=== PATIENT | female | born 1965 | race Caucasian/White ===

== ENCOUNTER → 2018-07-19 | Outpatient (CLI) | payer BC ==
[~2018-07-19] MED LIST: CHOL200024 PO; FISH1CAP PO; LEVO75TA5 PO; LINA5TAB PO; LOSA25TA25 PO; MULT-717 PO; VITA400C43 PO
== END | disposition home or self-care (01) ==
LOC: STAR 12:44
PROVIDERS: ATTEND Orthopaedic Surgery
DX: Z01.818 Encounter for other preprocedural examination (principal); M76.72 Peroneal tendinitis, left leg; M12.872 Other specific arthropathies, not elsewhere classified, left ankle and foot; M25.572 Pain in left ankle and joints of left foot
CPT/HCPCS: 93005

== ENCOUNTER 2018-07-26 11:26 | Day surgery (SDC) | payer BC ==
[~2018-07-26] VITALS: Ht 167.6 cm; Wt 115.5 kg
[2018-07-26] MEDS ORDERED: FENTANYL PF 100 MCG/2ML ONE ×2 (11:48→14:35)
[2018-07-26] MEDS ORDERED: MIDAZOLAM 1 MG/ML, 2ML ONE (11:48)
[2018-07-26] MEDS ORDERED: LACTATED RINGERS 1,000 ML IV SCH (12:20)
[2018-07-26 12:24] VITALS: BP 131/90
[2018-07-26] MEDS ORDERED: GABAPENTIN 300 MG CAPSULE PO ONE (12:30)
[2018-07-26] MEDS ORDERED: ONDANSETRON ODT 8 MG PO ONE (12:30)
[2018-07-26] MEDS ORDERED: ACETAMINOPHEN 500 MG TABLET PO ONE (12:30)
[2018-07-26] MEDS ORDERED: MIDAZOLAM 1 MG/ML, 2ML IV PRN (14:00)
[2018-07-26] MEDS ORDERED: MEPERIDINE/PF 25MG/0.5ML IVPush PRN (14:00)
[2018-07-26] MEDS ORDERED: FENTANYL PF 100 MCG/2ML IV PRN (14:00)
[2018-07-26] MEDS ORDERED: hydrALAzine 20 MG/ML, 1ML IV PRN (14:00)
[2018-07-26] MEDS ORDERED: METOPROLOL 1 MG/ML, 5ML IV PRN (14:00)
[2018-07-26] MEDS ORDERED: ALBUTEROL/IPRATROPIUM 2.5MG/0.5MG, 3 ML NPPB PRN (14:00)
[2018-07-26] MEDS ORDERED: ONDANSETRON 2MG/ML, 2ML IV PRN (14:00)
[2018-07-26] MEDS ORDERED: OXYcodone 5 MG/5 ML ORAL.SOL UDC PO PRN (14:00)
[2018-07-26] MEDS ORDERED: HYDROmorphone 2 MG/ML, 1ML IVPush PRN (14:00)
[2018-07-26] MEDS ORDERED: PROMETHAZINE 25 MG/ML, 1ML IV PRN (14:00)
[2018-07-26] MEDS ORDERED: KETOROLAC 30 MG/1 ML ONE (14:54)
[2018-07-26] MEDS ORDERED: LIDOCAINE-MPF 2% ,5ML ONE (14:54)
[2018-07-26] MEDS ORDERED: CEFAZOLIN 1,000 MG ONE (14:55)
[2018-07-26] MEDS ORDERED: BUPIVACAINE/PF 0.5% ONE (14:55)
[2018-07-26] MEDS ORDERED: DEXAMETHASONE 4 MG/ML, 1ML ONE (14:55)
[2018-07-26] MEDS ORDERED: PROPOFOL 10 MG/ML, 20ML ONE (14:55)
== END 2018-07-26 18:15 | disposition home or self-care (01) ==
LOC: OUT 11:26
PROVIDERS: ATTEND Orthopaedic Surgery
DX: S86.321A Laceration of muscle(s) and tendon(s) of peroneal muscle group at lower leg level, right leg, initial encounter (principal); M21.6X2 Other acquired deformities of left foot; M25.372 Other instability, left ankle; I10 Essential (primary) hypertension; E03.9 Hypothyroidism, unspecified; E11.9 Type 2 diabetes mellitus without complications; E66.01 Morbid (severe) obesity due to excess calories; Z68.41 Body mass index [BMI] 40.0-44.9, adult; Z88.6 Allergy status to analgesic agent; Z88.8 Allergy status to other drugs, medicaments and biological substances; X58.XXXA Exposure to other specified factors, initial encounter; Y93.89 Activity, other specified; Y92.89 Other specified places as the place of occurrence of the external cause; Y99.8 Other external cause status
CPT/HCPCS: 27687; 27698; 28300; 28306; 73620; 76000; 82962; C1713; J0690; J1100; J1885; J2250; J2704; J3010; J3490; J7120; Q0162; 76001

== ENCOUNTER 2020-12-02 11:28 | Day surgery (SDC) | payer BC, OTHER ==
[2020-11-29 11:36] LABS: ALANINE AMINOTRANSFERASE 39 U/L (12-78); ALBUMIN 3.6 g/dL (3.4-5.0); ANION GAP 4 mmol/L (5-15); CALCIUM 9.6 mg/dL (8.5-10.1); CHLORIDE 108 mmol/L (98-107); CREATININE 0.91 mg/dL (0.55-1.02)
[2020-11-29 11:39] LABS: ALKALINE PHOSPHATASE 56 U/L (45-117); BILIRUBIN,TOTAL 0.4 mg/dL (0.2-1.0); TOTAL PROTEIN 8.2 g/dL (6.4-8.2)
[~2020-12-02] VITALS: Ht 167.6 cm; Wt 118.8 kg
[~2020-12-02 11:28] MED LIST changes: +ATOR10TA9 PO; +LEVO88TA4 PO
[2020-12-02] MEDS ORDERED: CHLORHEXIDINE 15 ML UDC PO ONE (12:00)
[2020-12-02] MEDS ORDERED: LACTATED RINGERS 1,000 ML IV SCH (12:00)
[2020-12-02] MEDS ORDERED: LIDOCAINE-MPF 1%, 2ML INFIL ONE (12:00)
[2020-12-02 12:19] VITALS: BP 151/90
[2020-12-02] MEDS ORDERED: PROPOFOL 10 MG/ML, 20ML ONE (13:09)
[2020-12-02] MEDS ORDERED: PROPOFOL 50 ML ONE (13:09)
[2020-12-02] MEDS ORDERED: FENTANYL PF 100 MCG/2ML IV PRN (15:00)
[2020-12-02] MEDS ORDERED: DIPHENHYDRAMINE 50 MG/ML, 1ML IVPush PRN (15:00)
[2020-12-02] MEDS ORDERED: DIAZEPAM 5 MG/ML, 2ML IVPush PRN (15:00)
[2020-12-02] MEDS ORDERED: EPHEDRINE 50 MG/ML, 1ML IM PRN (15:00)
[2020-12-02] MEDS ORDERED: MEPERIDINE/PF 25MG/0.5ML IVPush PRN (15:00)
[2020-12-02] MEDS ORDERED: PROMETHAZINE 25 MG/ML, 1ML IVPush PRN (15:00)
[2020-12-02] MEDS ORDERED: ONDANSETRON 2MG/ML, 2ML IVPush PRN (15:00)
[2020-12-02] MEDS ORDERED: OXYcodone 5 MG/5 ML ORAL.SOL UDC PO PRN (15:00)
[2020-12-02] MEDS ORDERED: EPHEDRINE 50 MG/ML, 1ML IVPush PRN (15:00)
[2020-12-02] MEDS ORDERED: LABETALOL 5MG/ML, 20ML IV PRN (15:00)
== END 2020-12-02 16:10 | disposition home or self-care (01) ==
LOC: OUT 11:28
PROVIDERS: ATTEND Internal Medicine Gastroenterology
DX: K22.2 Esophageal obstruction (principal); K29.50 Unspecified chronic gastritis without bleeding; K31.7 Polyp of stomach and duodenum; R13.10 Dysphagia, unspecified; R63.3 Feeding difficulties; E66.01 Morbid (severe) obesity due to excess calories; Z68.41 Body mass index [BMI] 40.0-44.9, adult; Z20.822 Contact with and (suspected) exposure to COVID-19; Z79.890 Hormone replacement therapy; Z79.899 Other long term (current) drug therapy; Z88.5 Allergy status to narcotic agent
CPT/HCPCS: 36415; 43239; 43249; 80053; 82962; 88305; 93005; C1725; J2704; J7120; U0003; U0005